=== PATIENT | female | born 2000 | race Two or more races ===

== ENCOUNTER 2023-10-20 15:49 | Outpatient (CLI) | payer OTHER, SELFPAY | END 2023-10-20 15:50 | disposition home or self-care (01) | PROVIDERS: Visit Provider Physician Assistant | DX: R42 Dizziness and giddiness (principal); R20.0 Anesthesia of skin | CPT/HCPCS: 84439; 84443 ==

== ENCOUNTER 2024-11-15 17:54 | Emergency (ER) | payer OTHER, SELFPAY ==
--- OUTSIDE RECORDS SUMMARY | 2024-11-15 18:00 | XMS_ITS | Clinical Summary ---
Author Organization [employer] [facility] Address [address] [place] [id number] Care Team Providers Care Photographer News Name Role Phone Pcp, No Primary Care Provider Unavailabl e Allergies No known active allergies Medications PNV/iron/folic acid ( [id number]-TX ORAL) Take 1 Tablet by mouth once daily. Active Active Problems Problem Noted Date Diagnosed Date Subchorionic hemorrhage in first trimester 11/11 Overview (11/11/2024): US dated 11/04/24: Small inferior subchorionic hemorrhage measures 13 x 10 x 11 millimeters. 10/18/2024 Overview (11/11/2024): Primary Provider: Renuka Hazel MD LMP: 09/05/24 (exact); ELSY 06/12/25 Working ELSY: 06/26/2025 by 6w US Complications this : - small subchorionic hemorrhage on initial US Pertinent OB History: - Ultrasounds: Datin11/04/24: IMPRESSION: Single living intrauterine measures 6 weeks 4 days with a sonographic due date of 06/26/2025. Small inferior subchorionic hemorrhage measures 13 x 10 x 11 millimeters. Anatomy scan: Additional: Labs: Rh: O Rh Positive on 10/18/2024 GCT: No results found in past 5 years on . GTT: No results found in past 5 years on . Hgb: 14.1 on 10/18/2024 GBS: No results found in past 5 years on . Rubella: Immune on 10/18/24 Hep B: NON-REACTIVE on 10/18/2024 HIV: non-reactive on 10/18/24 Syphilis: Non-Reactive on 10/18/2024 Gonorrhea: Negative on 10/18/2024 Chlamydia: Negative on 10/18/2024 Other abnormal labs: Vaccines: COVID-19: Flu: Rhogam: Tdap: Plan: Support: Delivery type: Delivery meds: Feeding: Circumcision: Baby Meds: Contraception: Estimated Date of Delivery Comme nts Yes 06/12/2025 Based on last me nstrual period of 09/05/2024 (Exact Date) Encounters Date Type Department Care Team Description 11/12/2024 Nurse Triage [facility] Nurse Triage Pcp, No Problem 11/04/2024 9:00 AM CDT Ancillary Procedure [facility] [address] [place] [address] 11/04/2024 Telephone [facility] [address] [place] [address] Renuka Hazel MD Results 11/04/2024 Travel 10/18/2024 9:00 AM CDT OB Encounter [facility] [address] [place] [address] Education (RN OB intake) 10/18/2024 Travel from Last 3 Months Family History Medical History Relation Name Comments No Known Problems Father Diabetes Maternal Grandfather No Known Problems Maternal Grandmother No Known Problems Mother No Known Problems Paternal Grandfather No Known Problems Paternal Grandmother Good Health Sister Relation Name Status Comments Father Maternal Grandfather Alive Maternal Grandmother Alive Mother Paternal Grandfather Alive Paternal Grandmother Alive Sister Alive Social History Tobacco Use Types Packs/Day Years Used Date Smoking Tobacco: Never Smokeless Tobacco: Never Tobacco Cessation:Counseling Given: Not Answered Alcohol Use Standard Drinks/Week Comments Not Currently 0 (1 standard drink = 0.6 oz pur e alcohol) PHQ-2 Answer Date Recorded PHQ-2 TOTAL SCORE 0 10/18/2024 Estimated Date of Delivery Comme nts Yes 06/12/2025 Based on last me nstrual period of 09/05/2024 (Exact Date) Sex and Gender Information Value Date Recorded Sex Assigned at Not on file Legal Sex Female 4:24 PM CDT Gender Identity Not on file Sexual Orientation Not on file Obstetrics History Para Term AB IAB SAB Ectopic Multiple Livin g Live Births 1 Date Outcome GA Total Labor Labor/2nd/3rd Weight Sex Type Anes PTL Sally A1 A5 Name Clin Current Summary Episode Dates Number of Fetuses Estimated Date of Delivery 10/18/2024 - Present (11/15/2024) 06/12/2025 (set by Leeann Hare RN on 10/18/2024 based on Last Menstrual Period on 09/05/2024 (Exact Date)) Dating Summary Based On ELSY GA Diff Last Menstrual Period on 09/05/2024 (Exact Date) 06/12/2025 Working Vitals Pregravid Weight Height TWG (As of 11/15/2024) Pregrav id BMI 1.68 m (5' 6.14) Notes Progress Notes - OB Encounte r - 10/18/2024 - GA:6w1d 10/18/2024 - 6w1d - Leeann Hare RN SUBJECTIVE: Ana Laura Purcell is a 24 y.o. female, , who presents for confirmation and ob education. Patient presents to the clinic with friend Baldemar. Had positive test at home. This was Planned, Desired. Patient was not on contraception. Date Reliability: definite ELSY based on LMP: Estimated Date of Delivery: 06/12/25 Current symptoms include: Nausea:Yes - mild Vomiting:No Breast tenderness:No Vaginal bleeding:No Vaginal discharge:No Pelvic cramping:No Fatigue:Yes - mild Previous Delivery Type: NA Occupation of patient: Laborer [employer] Name of Partner or Father of baby: Doesn't wish to list. MENSTRUAL HISTORY: Patient's last menstrual period was 09/05/2024 (exact date).: Cycle Regularity: regular, every 28-30 days Past Medical History: . Date History of BCG vaccination Varicella Had chicken pox as an infant OB History Para Term AB Living 1 SAB IAB Ectopic Multiple Live Births # Outcome Date GA Lbr Kamron/2nd Weight Sex Type Anes PTL Lv 1 Current 10/18/2024 9:00 AM PHQ Depression Screening Date of PHQ exam (doc flow) 10/18/2024 1. Lack of interest/pleasure 0 - Not at all 2. Feeling down/depressed 0 - Not at all PHQ-2 TOTAL SCORE 0 10/18/2024 9:00 AM JOSE ALEJANDRO-7 ANXIETY SCREENING JOSE ALEJANDRO date (doc flow) 10/18/2024 Nervous, anxious 0 Cannot stop worrying 0 Worry about different things 0 Cannot relax 0 Feeling restless 0 Easily annoyed/irritated 0 Afraid of awful event 0 Score 0 Severity none 5P'S SUBSTANCE ABUSE SCREEN FOR ALCOHOL, DRUGS AND TOBACCO: Did any of your parents have a problem with using alcohol or drugs? No Do any of your friends (peers) have problems with drug or alcohol use? No Does your partner have a problem with drug or alcohol use? No Before you knew you were , how often did you drink beer, wine, wine coolers or liquor or use any kind of drug? Sometimes In the past month, how often did you drink beer, wine, wine coolers or liquor or use any kind of drug? 2 or 3 times and a couple of drinks How much did you smoke, vape or use tobacco or nicotine in any form before you knew you were ? Don't Smoke, Vape or use Tobacco Genetic Screening Genetic Screening/Teratology Counseling- Includes patient, baby's father, or anyone in either family with: Patient's age 35 years or older as of estimated date of delivery: No Thalassemia (Mexican, Cypriot, Mediterranean, or background): MCV less than 80: No Neural tube defect (Meningomyelocele, Spina bifida, or Anencephaly): No Congenital heart defect: No Down syndrome: No Santi-Sachs (Ashkenazi Islam, Cajun, Micronesian Kosovan): No Olga disease (Ashkenazi Islam): No Familial dysautonomia (Ashkenazi Islam): No Sickle cell disease or trait (): No Hemophilia or other blood disorders: No Muscular dystrophy: No Cystic fibrosis: No Real's chorea: No Intellectual disability and/or autism: No Other inherited genetic or chromosomal disorder: No Maternal metabolic disorder (eg. Type 1 diabetes, PKU): No Patient or baby's father had child with defects not listed above: No Recurrent loss, or a stillbirth: No Medications (including supplements, vitamins, herbs, or OTC drugs)/illicit/recreational drugs/alcohol since last menstrual period: Yes If yes, agent(s) and strength/dosage: Collagen, alcohol use (infrequent) CURRENT MEDICATIONS: No current outpatient medications on file. No current facility-administered medications for this visit. Medications have been reviewed by me and are current to the best of my knowledge and ability. ALLERGIES: Patient has no known allergies. OBJECTIVE: LMP 09/05/2024 (Exact Date) No No results found for: PREGURINE ASSESSMENT/PLAN: ICD-10-CM 1. Encounter for supervision of normal first in first trimester (HC) Z34.01 ANTI HIV 1/2 VARICELLA-ZOSTER V AB, IGG CBC W PLT NO DIFF URINE CULTURE TYPE AND SCREEN RUBELLA IMMUNE STATUS TREPONEMA PALLIDUM HBSAG (HBS) ANTI HCV KNITTER OPERATOR PROBE - CHLAMYDIA DNA PCR [[id number]] US 1ST TRIMESTER (< 14 weeks) [14901.0] EDUCATION/PATIENT INSTRUCTIONS - Advised patient to start/continue vitamin. - Discussed risk of using alcohol, tobacco, other drugs in . - Discussed healthy lifestyle in . - Provided copy of Beginnings book and book inserts, discussed [id number] medications, and follow up. - Encouraged patient to call clinic at [phone] with any vaginal bleeding, fluid leaking from vagina, severe abdominal pain, nausea with severe vomiting, fever higher than 100.4F, painful urination, headache not relieved by Tylenol, or other concerns - labs completed with today's visit. - Patient informed to schedule 1st trimester dating ultrasound between 7-10 weeks. - Initial OB appointment with FP/OB scheduled. COVID-19 vaccine discussion to be completed at this visit. Future Appointments Date Time Provider Department Center 11/28/2024 9:05 AM [facility] Leeann Hare RN .................... 10/18/2024 9:49 AM Last Filed Vital Signs Vital Sign Reading Time Taken Comments Blood Pressure - - Pulse - - Temperature - - Respiratory Rate - - Oxygen Saturation - - Inhaled Oxygen Concentration - - Weight 74.8 kg (164 lb 12.8 oz) 08/26/2 025 10:39 AM CDT Height 168 cm (5' 6.14) 10/18/2024 10: 39 AM CDT Body Mass Index 26.49 10/18/2024 10:39 AM CDT Plan of Treatment Upcoming Encounters Date Type Department Care Team (Late st Contact Info) Description 11/28/2024 9:05 AM CDT OB Encounter [facility] [address] [place] [address] Renuka Hazel MD [address] [place] [address] Health Maintenance Due Date Last Done Comments Tetanus booster 2013 HPV series for age 9-45 (1 - 3-dose series) 2017 Hepatitis B series for 19+ ( 1 of 3 - 19+ 3-dose series) 2021 Pap test for age 21-65 07/26/2023 COVID-19 vaccine series (2023- season) 2024 Influenza Vaccine (#1) 2024 BMI (ht and wt on same day) for age 18+ 10/18/2025 10/18/2024 Depression screening for age 12+ 10/18/2025 10/19/19 HIV for age 15-65 Completed 10/18/2024 Hepatitis C screening for ag e 18-79 Completed 10/18/2024 Pneumococcal series for age 6-49 Aged Out No longer eligible based on patient's age to complete this topic RSV vaccine for adults or (No Doses Required) Completed Procedures Procedure Name Priority Date/Time Associated Diagnosis Comments US OB 1ST TRI SINGLE TA AND TV Routine 11/04/2024 11:13 AM CDT Encounter for supervision of normal first in first trimester (HC) TYPE & SCREEN Routine 10/18/2024 10:49 AM CDT Encounter for supervision of normal first in first trimester (HC) TREPONEMA PALLIDUM Routine 10/18/2024 10 :49 AM CDT Encounter for supervision of normal first in first trimester (HC) ANTI HCV Routine 10/18/2024 10:48 AM CDT Encounter for supervision of normal first in first trimester (HC) HBSAG (HBS) Routine 10/18/2024 10:48 AM CDT Encounter for supervision of normal first in first trimester (HC) RUBELLA IMMUNE STATUS Routine 10/18/2024 10:48 AM CDT Encounter for supervision of normal first in first trimester (HC) CBC W PLT NO DIFF Routine 10/18/2024 10: 48 AM CDT Encounter for supervision of normal first in first trimester (HC) VARICELLA-ZOSTER V AB, IGG Routine 10/18/2024 10:48 AM CDT Encounter for supervision of normal first in first trimester (HC) ANTI HIV 1/2 Routine 10/18/2024 10:48 AM CDT Encounter for supervision of normal first in first trimester (HC) GC CHLAMYDIA TRACH PROBE Routine 10/18/2024 10:47 AM CDT Encounter for supervision of normal first in first trimester (HC) URINE CULTURE Routine 10/18/2024 10:47 AM CDT Encounter for supervision of normal first in first trimester (HC) from Last 3 Months Results * US OB 1ST TRI SINGLE TA AND TV (11/04/2024 11:13 AM CDT) Anatomical Region Laterality Modality Ultrasound 11/04/2024 2:09 PM CDT Impressions 11/04/2024 2:09 PM CDT Single living intrauterine measures 6 weeks 4 days with a sonographic due date of 06/26/2025. Small inferior subchorionic hemorrhage measures 13 x 10 x 11 millimeters. Dictated by Josh Hua MD @ 11/04/2024 2:09:19 PM (Electronically Signed) Narrative 11/04/2024 2:09 PM CDT For Patients: As a result of the Cures Act, medical imaging exams and procedure reports are released immediately into your electronic medical record. You may view this report before your referring provider. If you have questions, please contact your health care provider. INDICATION: First trimester scan, establish dates. COMPARISON: None. TECHNIQUE: Real-time baldwin-scale imaging of the pelvis was performed transabdominal and transvaginal. Transvaginal imaging was done to better visualize the pole. FINDINGS: Sonographic imaging demonstrates a single living intrauterine gestation. The embryo demonstrates a regular cardiac rate measuring 126 beats per minute. The embryo`s crown-rump length measurement of 0.62 cm corresponds to a gestational age of 6 weeks 4 days with a sonographic due date of 06/26/2025. There is a normal-appearing yolk sac. There are no gross abnormalities noted within the embryo at this early state of development. The gestational sac has a normal appearance. There is an inferior perigestational hemorrhage which measures 13 x 10 x 11 millimeters. The amount of fluid within the sac appears appropriate for gestational age. The cervix is closed. The myometrium appears normal. Normal left ovary. Simple right ovarian cyst measures 3.3 x 2.5 x 3.3 cm. There are no suspicious fluid collections noted in the cul-de-sac. Procedure Note Josh Hua MD - 11/04/2024 For Patients: As a result of the Cures Act, medical imagingexams and procedure reports are released immediately into your electronicmedical record. You may view this report before your referring provider.If you have questions, please contact your health care provider. INDICATION: First trimester scan, establish dates. COMPARISON: None. TECHNIQUE: Real-time baldwin-scale imaging of the pelvis was performed transabdominaland transvaginal. Transvaginal imaging was done to better visualize thefetal pole. FINDINGS: Sonographic imaging demonstrates a single living intrauterine gestation.The embryo demonstrates a regular cardiac rate measuring 126 beats perminute. The embryo`s crown-rump length measurement of 0.62 cm correspondsto a gestational age of 6 weeks 4 days with a sonographic due date of06/26/2025. There is a normal-appearing yolk sac. There are no grossabnormalities noted within the embryo at this early state of development.The gestational sac has a normal appearance. There is an inferiorperigestational hemorrhage which measures 13 x 10 x 11 millimeters. Theamount of fluid within the sac appears appropriate for gestational age. The cervix is closed. The myometrium appears normal. Normal left ovary.Simple right ovarian cyst measures 3.3 x 2.5 x 3.3 cm. There are nosuspicious fluid collections noted in the cul-de-sac. IMPRESSION: Single living intrauterine measures 6 weeks 4 days with asonographic due date of 06/26/2025. Small inferior subchorionic hemorrhage measures 13 x 10 x 11millimeters. Dictated by Josh Hua MD @ 11/04/2024 2:09:19 PM (Electronically Signed) Renuka Hazel MD Final R esult * TREPONEMA PALLIDUM (10/18/2024 10:49 AM CDT) TREPONEMA PALLIDUM Non-Reacti ve Non-Reacti ve 10/18/2024 3:41 PM CDT [facility] Blood BLOOD SPECIMEN / Unknown [facility] / Unknown 10/18/2024 10:49 AM CDT 10/18/2024 10:49 AM CDT Renuka Hazel MD SEND OUTS Final R esult [facility] [address] [place] [id number], * TYPE AND SCREEN (10/18/2024 10:49 AM CDT) ABORH O Rh Positive 10/18/2024 4:37 PM CDT [facility] BLOOD BANK ANTIBODY SCREEN Negative Negative 10/18/2024 4:37 PM CDT [facility] BLOOD BANK SPECIMEN EXPIRATION DATE/TIME 10/21/24 23:59 10/18/2024 4:37 PM CDT [facility] Blood BLOOD SPECIMEN / Unknown [facility] / Unknown 10/18/2024 10:49 AM CDT 10/18/2024 10:49 AM CDT Renuka Hazel MD BLOOD BANK Final R esult Performing Organization Address City/[facility]/ZIP Co de Phone Number [facility] BLOOD BANK [address] [place] [address], [place] [phone] * VARICELLA-ZOSTER V AB, IGG (10/18/2024 10:48 AM CDT) VARICELLA ZOSTER VIRUS ANTIBODY (IGG) 11.80 S/CO 10/19/2024 12:23 PM CDT [facility] Comment: Signal to Cut-off S/CO Interpretation --------- <1.00 Negative - Antibody not detected > or = 1.00 Positive - Antibody detected A positive result indicates that the patient has antibody to VZV but does not differentiate between an active or past infection. The clinical diagnosis must be interpreted in conjunction with the clinical signs and symptoms of the patient. This assay reliably measures immunity due to previous infection but may not be sensitive enough to detect antibodies induced by vaccination. Thus, a negative result in a vaccinated individual does not necessarily indicate susceptibility to VZV infection. A more sensitive test for vaccination-induced immunity is Varicella Zoster Virus Antibody Immunity Screen, ACIF. Blood BLOOD SPECIMEN / Unknown [facility] / Unknown 10/18/2024 10:48 AM CDT 10/18/2024 10:48 AM CDT Renuka Hazel MD LABORATORY Final R esult [facility] [address] [address], [place] [phone] * RUBELLA IMMUNE STATUS (10/18/2024 10:48 AM CDT) RUBELLA AB (IGG), IMMUNE STATUS 1.09 Index 10/19/2024 12:23 PM CDT [facility] Comment: Index Interpretation ----- <0.90 Not consistent with immunity 0.90-0.99 Equivocal > or = 1.00 Consistent with immunity The presence of rubella IgG antibody suggests immunization or past or current infection with rubella virus. Blood BLOOD SPECIMEN / Unknown [facility] / Unknown 10/18/2024 10:48 AM CDT 10/18/2024 10:48 AM CDT Renuka Hazel MD SEND OUTS Final R esult Performing Organization Address [facility] de Phone Number [facility] [address] [address], * HBSAG (HBS) (10/18/2024 10:48 AM CDT) HEPATITIS B SURFACE ANTIGEN NON-REACT CLAUDIA NON-REACT CLAUDIA 10/19/2024 11:41 AM CDT [facility] Comment: For additional information, please refer to http://education.[employer]/faq/PJE836 (This link is being provided for informational/ educational purposes only.) Blood BLOOD SPECIMEN / Unknown [facility] / Unknown 10/18/2024 10:48 AM CDT 10/18/2024 10:48 AM CDT Renuka Hazel MD SEND OUTS Final R esult Performing Organization Address [facility] de Phone Number [facility] [address] [address], * ANTI HCV (10/18/2024 10:48 AM CDT) HEPATITIS C ANTIBODY NON-REACT CLAUDIA NON-REACT CLAUDIA 10/19/2024 12:34 PM CDT [facility] Comment: HCV antibody was non-reactive. There is no laboratory evidence of HCV infection. In most cases, no further action is required. However, if recent HCV exposure is suspected, a test for HCV RNA (test code 42250) is suggested. For additional information please refer to http://education.[employer]um[employer]/faq/YBM41y8 (This link is being provided for informational/ educational purposes only.) Blood BLOOD SPECIMEN / Unknown [facility] / Unknown 10/18/2024 10:48 AM CDT 10/18/2024 10:48 AM CDT Renuka Hazel MD SEND OUTS Final R esult [facility] [address] [place] [address], * (ABNORMAL) CBC W PLT NO DIFF (10/18/2024 10:48 AM CDT) WHITE BLOOD CELL COUNT 7.7 3.8 - 10.8 Thousand/ uL 10/19/2024 2:29 AM CDT [facility] RED BLOOD CELL COUNT 5.98(H) 3.80 - 5.10 Million/u L 10/19/2024 2:29 AM CDT [facility] HEMOGLOBIN 14.1 11.7 - 15.5 g/dL 10/19/2024 2:29 AM CDT [facility] HEMATOCRIT 44.4 35.0 - 45.0 % 10/19/2024 2:29 AM CDT [facility] MCV 74.2(L) 80.0 - 100.0 fL 10/19/2024 2:29 AM CDT [facility] MCH 23.6(L) 27.0 - 33.0 pg 10/19/2024 2:29 AM CDT [facility] MCHC 31.8(L) 32.0 - 36.0 g/dL 10/19/2024 2:29 AM CDT [facility] Comment: For adults, a slight decrease in the calculated MCHC value (in the range of 30 to 32 g/dL) is most likely not clinically significant; however, it should be interpreted with caution in correlation with other red cell parameters and the patient's clinical condition. RDW 16.2(H) 11.0 - 15.0 % 10/19/2024 2:29 AM CDT [facility] PLATELET COUNT 249 140 - 400 Thousand/ uL 10/19/2024 2:29 AM CDT [facility] MPV 13.4(H) 7.5 - 12.5 fL 10/19/2024 2:29 AM CDT [facility] Blood BLOOD SPECIMEN / Unknown [facility] / Unknown 10/18/2024 10:48 AM CDT 10/18/2024 10:48 AM CDT Renuka Hazel MD HEMATOLOGY Final R esult Performing Organization Address [facility] de Phone Number [facility] [address] [address], * ANTI HIV 1/2 (10/18/2024 10:48 AM CDT) HIV FINAL INTERPRETATOIN SEE NOTE 10/19/2024 11:41 AM CDT [facility] Comment: HIV Negative HIV-1 antigen and HIV-1/HIV-2 antibodies were not detected. There is no laboratory evidence of HIV infection. HIV AG/AB, 4TH GEN NON-REACT CLAUDIA NON-REACT CLAUDIA 10/19/2024 11:41 AM CDT [facility] Blood BLOOD SPECIMEN / Unknown [facility] / Unknown 10/18/2024 10:48 AM CDT 10/18/2024 10:48 AM CDT Renuka Hazel MD SEND OUTS Final R esult Performing Organization Address [facility] Co de Phone Number [facility] [address] [phone], * KNITTER OPERATOR PROBE - GC CHLAMYDIA DNA PCR [[id number]] (10/18/2024 10:47 AM CDT) CHLAMYDIA PROBE Negative 8:20 PM CDT [facility] N GONORRHOEAE PROBE Negative 10/18/2024 8:20 PM CDT [facility] Other URINE SPECIMEN / Unknown Non-Blood / Unknown 10/18/2024 10:47 AM CDT 10/18/2024 10:47 AM CDT us Renuka Hazel MD MICROBIOLOGY Final R esult Performing Organization Address [facility] Co de Phone Number [facility] [address] [place] [phone], [place] * URINE CULTURE (10/18/2024 10:47 AM CDT) CULTURE <10,000 CFU/mL multiple organisms 10/19/2024 3:02 PM CDT [facility] Urine URINE SPECIMEN / Unknown Non-Blood / Unknown 10/18/2024 10:47 AM CDT 10/18/2024 10:47 AM CDT us Renuka Hazel MD MICROBIOLOGY Final R esult Performing Organization Address [facility]/ZIP Co de Phone Number [facility] [address] [place] [phone], from Last 3 Months Care Teams Photographer News Relationship Specialty Start Date End Date Pcp, No . PCP - General 10/17/24
[2024-11-15 18:12] VITALS: BP 119/82; PULSE 101; RESP 18; TEMP 36.4; O2SAT 100; BMI 26.6
--- NOTE | 2024-11-15 18:22 | CRLHL7_ITS ---
For Patients: As a result of the Century Cures Act, medical imaging exams and procedure reports are released immediately into your electronic medical record. You may view this report before your referring provider. If you have questions, please contact your health care provider. INDICATION: Vaginal bleeding and pelvic pain. COMPARISON: OB ultrasound 11/04/2024. TECHNIQUE: Ultrasound pelvis transvaginal for better assessment or to better visualize the endometrium. Real-time grayscale imaging and color Doppler analysis. FINDINGS: Sonographic images demonstrate a normal size and smooth outer contour of the uterus. The uterus is retroverted in position. The endometrial lining is thickened and heterogeneous measuring 23 mm in composite thickness. The previously seen intrauterine gestational sac is no longer visualized. There is mobile echogenic fluid within the endometrial cavity which likely represents blood products. Questionable region of increased endometrial blood flow in the lower uterine segment, without discrete mass. The right ovary measures 5.4 x 2.8 x 2.9 cm and contains a 2.6 x 2.4 x 2.5 cm corpus luteal cyst which is slightly decreased in size compared to prior exam. Mildly prominent right adnexal vessels. No definite adnexal mass. The left ovary measures 2.8 x 3.1 x 1.9 cm. Unremarkable sonographic appearance. No suspicious adnexal mass. Small amount of simple appearing free fluid in the pelvic cul-de-sac is likely physiologic. IMPRESSION: 1. The previously seen intrauterine gestational sac is no longer visualized. Findings are compatible with miscarriage. 2. Thickened endometrial lining containing mobile echogenic material likely representing blood products. 3. Questionable region of increased endometrial blood flow in the lower uterine segment, without discrete mass. Correlate with serial beta HCG levels to exclude retained products of conception. 4. Slightly decreased size of the right ovarian corpus luteal cyst. Dictated by Kay David MD @ 11/15/2024 8:47:39 PM (Electronically Signed)
--- NOTE | 2024-11-15 18:30 | ED_ITS ---
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 She states she has been dealing with diarrhea today and then suddenly developed nausea and pelvic pain about an hour prior to arrival. States pain is severe in the lower pelvic and lower abdominal region. Denies having pain like this before. Had ultrasound done a few days ago at the [facility] confirming an intrauterine . Patient states she believes she passed some tissue with the blood. Has not had any fevers but has had chills. Denies chest pain, shortness of breath, headache, lightheadedness, dizziness, weakness, numbness, polyuria, dysuria. Has not taken anything yet for pain. Related Data Home Medications ?Medication ?Instructions ?Recorded ?Confirmed No Known Home Medications 10/20/2309/24 Allergies Allergy/AdvReac Type Severity Reaction Status Date / Time No Known Drug Allergies Allergy Verified 10/20/23 15:33 Review of Systems Status of ROS: Reports: 10 or more systems reviewed and unremarkable except as noted in History and below Exam Narrative: Exam Narrative: Const: Well-nourished, Well-developed, in moderate distress Eyes: PERRL, no conjunctival injection, and symmetrical lids HENT: Atraumatic external nose and ears. Moist mucous membranes. Neck: Symmetric, trachea midline, No thyromegaly. CVS: RRR, No murmurs or gallops. Peripheral pulses 2+ and equal in all extremities RESP: Unlabored respiratory effort. Clear to auscultation bilaterally. GI: Lower abdominal tenderness, Nondistended, No rebound or guarding. : Bilateral pelvic paring worse in the left lower quadrant MSK:Extremities w/o deformity, Normal Active ROM Skin: Warm, Dry. No rashes or lesions. Neuro: Normal Muscle tone, No focal neurological deficits. Psych: Awake, Alert, & Oriented x3. Appropriate mood and affect. Const: Vital Signs, click to edit/add: Vital Signs - 24 hr 11/15/24 18:12 11/15/24 19:48 Temperature 97.6 F Pulse Rate 82 Pulse Rate [Right Pulse Oximeter] 101 H Respiratory Rate 18 16 Blood Pressure 124/87 Blood Pressure [Ri ght Upper Arm] 119/82 Pulse Oximetry 100 100 Oxygen Delivery Me thod Room Air Room Air Course Vital Signs Vital signs: Initial Vital Signs Temperature 97.6 F 11/15/24 18:12 Temperature Source Temporal Artery Scan 11/15/24 18:12 Pulse Rate 101 H 11/15/24 18:12 Respiratory Rate 18 11/15/24 18:12 Blood Pressure 119/82 11/15/24 18:12 Blood Pressure Mean 94 11/15/24 18:12 Blood Pressure Position Sitting 11/15/24 18:12 Pulse Oximetry 100 11/15/24 18:12 Oxygen Delivery Method Room Air 11/15/24 18:12 Vital Signs Temperature 97.6 F 11/15/24 18:12 Pulse Rate 101 H 11/15/24 18:12 Respiratory Rate 18 11/15/24 18:12 Blood Pressure 119/82 11/15/24 18:12 Pulse Oximetry 100 11/15/24 18:12 Oxygen Delivery Method Room Air 11/15/24 18:12 Temperature 97.6 F 11/15/24 18:12 Pulse Rate 82 11/15/24 19:48 Respiratory Rate 16 11/15/24 19:48 Blood Pressure 124/87 11/15/24 19:48 Pulse Oximetry 100 11/15/24 19:48 Oxygen Delivery Method Room Air 11/15/24 19:48 Medications Administered Medications: Discontinued Medications Generic Name Dose Route Start Last Admin Trade Name Freq PRN Reason Stop Dose Admin Lactated Ringer's 1,000 mls @ 1,000 mls/hr 11/15/24 18:22 11/15/24 19:46 Lactated Ringers 1000 Ml IV 11/15/24 19:21 Infused .Q1H ONE Infusion Acetaminophen 1,000 mg in 100 mls @ 400 mls/hr 11/15/24 18:47 11/15/24 19:57 Acetaminophen Inj IVPB 11/15/24 19:01 Infused ONCE ONE Infusion Morphine Sulfate 4 mg 11/15/24 18:22 11/15/24 18:39 Morphine 4 Mg/Ml Inj IVP 11/15/24 18:23 1 mg ONCE ONE Administration Ondansetron HCl 4 mg 11/15/24 18:22 11/15/24 18:39 Ondansetron 2 Mg/Ml Inj IVP 11/15/24 18:23 4 mg ONCE ONE Administration Medical Decision Making MDM Narrative Medical decision making narrative: Patient is a 24-year-old female presenting to the emergency department for pelvic pain. Differential at this time includes appendicitis, colitis, ovarian torsion, miscarriage. Also with an ultrasound of the pelvis to look for any abnormalities. Will also do a CBC, CMP, magnesium, quantitative HCG, type and screen, urinalysis. Will hold off any abdominal imaging until rest of the results return. Since she has been having diarrhea will give her L of fluids or give her morphine for pain and Zofran for nausea. She did not tolerate the morphine and IV Tylenol was given instead. Lab work shows no acute concerning abnormalities other than she has a urinary tract infection. She is not currently bleeding. HCG quant is 103,660. Ultrasound shows findings compatible with miscarriage. There is an area that could be retained products of conception and is recommended she have follow-up HCG levels done. She is feeling better and no longer has any abdominal pain. All for pain is in her pelvic region. At this time I do not believe imaging is necessary and she is safe for discharge. She is no longer having or abdominal pain and we have other causes for her symptoms. I do believe a CT scan would be unnecessary radiation at this time. Will send her home with Zofran and Keflex be instymeds. She is agreeable to this plan. Lab Data Labs: Lab Results 11/15/24 11/15/24 11/15/24 Range/Units 18:20 18:22 18:34 WBC 11.16 H (4.50-11.00) K/uL RBC 5.98 H (4.00-5.20) m/uL Hgb 14.2 (12.0-16.0) gm/dL Hct 42.0 (33.0-51.0) % MCV 70 L (80-100) fL MCH 24 L (26-34) pg MCHC 34 (32-36) gm/dL RDW Coeff of Cindy 17.5 H (11.5-15.5) % Plt Count 207 (140-440) K/uL Neut % (Auto) 82.2 H (42.0-72.0) % Lymph % (Auto) 11.2 L (20-44) % [place] % (Auto) 5.8 (0.0-11.0) % Eos % (Auto) 0.2 (0.0-7.0) % Baso % (Auto) 0.4 (0.0-3.0) % Neut # (Auto) 9.20 H (1.7-7.0) K/uL Lymph # (Auto) 1.20 (0.90-2.90) K/uL [place] # (Auto) 0.60 (0.00-0.90) K/UL Eos # (Auto) 0.00 (0.00-0.50) K/uL Baso # (Auto) 0.00 (0.00-0.30) K/uL Abs Immat Gran (auto) 0.00 (0.00-0.30) K/uL Imm/Tot Granulo (auto) 0.2 % Sodium 134 L (135-149) mmol/L Potassium 3.7 (3.6-5.1) mmol/L Chloride 104 (96-114) mmol/L Carbon Dioxide 19 L (20-32) mmol/L Anion Gap 11 (7-15) mEq/L BUN 7 (5-24) mg/dL Creatinine 0.7 (0.5-1.5) mg/dL Estimated Creat Clear 118.01 Estimated GFR 125 ml/min Glucose 94 (60-115) mg/dL Calcium 9.1 (8.4-10.6) mg/dL Magnesium 1.8 (1.5-2.6) mg/dL Total Bilirubin 0.4 (0.1-1.5) mg/dL AST 40 H (12-35) U/L ALT 52 H (4-35) U/L Alkaline Phosphatase 89 (40-150) U/L Total Protein 7.6 (6.0-8.3) g/dL Albumin 4.2 (3.3-5.0) g/dL HCG, Quant 077305.00 mIU/mL Urine Color Red A (Yellow) Urine Appearance Cloudy A (Clear) Urine pH 8.5 (5.0-8.5) Ur Specific [place] 1.010 (1.000-1.030) Urine Protein 3+ A (Negative) Urine Glucose (UA) Trace A (Negative) Urine Ketones 4+ A (Negative) Urine Blood 3+ A (Negative) Urine Nitrite Positive A (Negative) Urine Bilirubin 3+ A (Negative) Urine Urobilinogen >=8.0 A (0.2-1.0) Ur Leukocyte Esterase 3+ A (Negative) Urine RBC >100 A (0-2) Urine WBC 10-25 A (0-5) Ur Squamous Epith Cells Few (None-Few) Urine Bacteria Few A (None) Lab Acknowledgement New Spec Needed A Blood Type Antibody Screen 11/15/24 Range/Units 18:47 WBC (4.50-11.00) K/uL RBC (4.00-5.20) m/uL Hgb (12.0-16.0) gm/dL Hct (33.0-51.0) % MCV (80-100) fL MCH (26-34) pg MCHC (32-36) gm/dL RDW Coeff of Cindy (11.5-15.5) % Plt Count (140-440) K/uL Neut % (Auto) (42.0-72.0) % Lymph % (Auto) (20-44) % [place] % (Auto) (0.0-11.0) % Eos % (Auto) (0.0-7.0) % Baso % (Auto) (0.0-3.0) % Neut # (Auto) (1.7-7.0) K/uL Lymph # (Auto) (0.90-2.90) K/uL [place] # (Auto) (0.00-0.90) K/UL Eos # (Auto) (0.00-0.50) K/uL Baso # (Auto) (0.00-0.30) K/uL Abs Immat Gran (auto) (0.00-0.30) K/uL Imm/Tot Granulo (auto) % Sodium (135-149) mmol/L Potassium (3.6-5.1) mmol/L Chloride (96-114) mmol/L Carbon Dioxide (20-32) mmol/L Anion Gap (7-15) mEq/L BUN (5-24) mg/dL Creatinine (0.5-1.5) mg/dL Estimated Creat Clear Estimated GFR ml/min Glucose (60-115) mg/dL Calcium (8.4-10.6) mg/dL Magnesium (1.5-2.6) mg/dL Total Bilirubin (0.1-1.5) mg/dL AST (12-35) U/L ALT (4-35) U/L Alkaline Phosphatase (40-150) U/L Total Protein (6.0-8.3) g/dL Albumin (3.3-5.0) g/dL HCG, Quant mIU/mL Urine Color (Yellow) Urine Appearance (Clear) Urine pH (5.0-8.5) Ur Specific [place] (1.000-1.030) Urine Protein (Negative) Urine Glucose (UA) (Negative) Urine Ketones (Negative) Urine Blood (Negative) Urine Nitrite (Negative) Urine Bilirubin (Negative) Urine Urobilinogen (0.2-1.0) Ur Leukocyte Esterase (Negative) Urine RBC (0-2) Urine WBC (0-5) Ur Squamous Epith Cells (None-Few) Urine Bacteria (None) Lab Acknowledgement Blood Type O Positive Antibody Screen NEGATIVE Imaging Data Transvaginal ultrasound: Attestation: I have reviewed the pertinent imaging results. Radiologist's impression: 1. The previously seen intrauterine gestational sac is no longer visualized. Findings are compatible with miscarriage. 2. Thickened endometrial lining containing mobile echogenic material likely representing blood products. 3. Questionable region of increased endometrial blood flow in the lower uterine segment, without discrete mass. Correlate with serial beta HCG levels to exclude retained products of conception. 4. Slightly decreased size of the right ovarian corpus luteal cyst. Dictated by Kay David MD @ 11/15/2024 8:47:39 PM Discharge Plan Discharge Clinical Impression: Miscarriage Acute cystitis Qualifiers: Hematuria presence: with hematuria Qualified Code(s): N30.01 - Acute cystitis with hematuria Patient Disposition: Home, Self-Care Condition: Stable Instructions: Miscarriage (ED), Urinary Tract Infection in Women (DC) Additional Instructions: You do have a urinary tract infection. It also appears that your having a miscarriage. There is some concern of retained products of conception. His recommended he call your OB in the morning to have follow-up beta hCG levels done. Her hCG level today was 103,660. Please return to emergency department for any new or worsening symptoms. Prescriptions: No Action No Known Home Medications Follow Up/Referrals: Provider,Not a Local [Primary Care Provider, Family Practice] Stand Alone Forms: [employer] Info Instructions
[2024-11-15 18:37] LABS: Lab Add On Test New Spec Needed
[2024-11-15] MEDS: LACTATED RINGERS 1000 ML 1,000 ML IV (18:37)
[2024-11-15] MEDS: ONDANSETRON 2 MG/ML inj 4 MG IVP (18:39)
[2024-11-15] MEDS: MORPHINE 4 MG/ML INJ IVP (18:39)
[2024-11-15 18:40] LABS: Hematocrit* 42.0 % (33.0-51.0); Hemoglobin* 14.2 gm/dL (12.0-16.0); Immature Granulocytes Abs Auto 0.00 K/uL (0.00-0.30); Immature Granulocytes Pct Auto 0.2 %; Lymphocytes Absolute Auto 1.20 K/uL (0.90-2.90); Mean Corpuscular HGB Conc 34 gm/dL (32-36); Mean Corpuscular Hemoglobin 24 pg (26-34); Mean Corpuscular Volume 70 fL (80-100); RDW Coefficient of Variation % 17.5 % (11.5-15.5); Red Blood Count* 5.98 m/uL (4.00-5.20); Slide Review Reflex No; White Blood Count* 11.16 K/uL (4.50-11.00)
[2024-11-15 19:00] LABS: Albumin* 4.2 g/dL (3.3-5.0); Chloride* 104 mmol/L (96-114); Potassium* 3.7 mmol/L (3.6-5.1); Sodium* 134 mmol/L (135-149)
[2024-11-15 19:02] LABS: Blood Urea Nitrogen* 7 mg/dL (5-24); Creatinine* 0.7 mg/dL (0.5-1.5); Est. Creatinine Clearance* 118.01; Estimated Glomerular Filt Rate 125 ml/min
[2024-11-15 19:03] LABS: Alanine Aminotransferase* 52 U/L (4-35); Alkaline Phosphatase* 89 U/L (40-150); Anion Gap 11 mEq/L (7-15); Aspartate Amino Transferase* 40 U/L (12-35); Bilirubin Total* 0.4 mg/dL (0.1-1.5); Calcium* 9.1 mg/dL (8.4-10.6); Carbon Dioxide* 19 mmol/L (20-32); Glucose* 94 mg/dL (60-115); Total Protein* 7.6 g/dL (6.0-8.3)
[2024-11-15] MEDS: ACETAMINOPHEN INJ 1,000 MG/100 ML VIAL 400 MG IVPB (19:41)
[2024-11-15 19:48] VITALS: BP 124/87; PULSE 82; RESP 16; O2SAT 100
[2024-11-15 20:30] LABS: HCG Quantitative* 103660.00 mIU/mL
[2024-11-15 20:37] LABS: Appearance Urine Cloudy (Clear)
== END 2024-11-15 22:08 | disposition home or self-care (01) ==
PROVIDERS: Emergency Provider Student in an Organized Health Care Education/Training Program
DX: N30.01 Acute cystitis with hematuria (principal); O03.9 Complete or unspecified spontaneous abortion without complication
CPT/HCPCS: 36415; 76817; 80053; 81001; 83735; 84702; 85025; 86850; 86900; 86901; 87086; 96365; 96375; 99284; A9270; J0131; J2270; J2405; J7120